=== PATIENT | female | born 1975 | race Hispanic/Latino ===

== ENCOUNTER → 2020-06-22 | Outpatient (CLI) | payer BC | END | disposition home or self-care (01) | LOC: SHCH 15:17 | PROVIDERS: ATTEND Internal Medicine Cardiovascular Disease | DX: R07.89 Other chest pain (principal) | CPT/HCPCS: 93306; 93356 ==

== ENCOUNTER 2020-12-03 11:03 | Emergency (ER) | payer BC ==
[2020-12-03] MEDS ORDERED: IBUPROFEN 600 MG TABLET ONE (12:05)
== END 2020-12-03 13:43 | disposition home or self-care (01) ==
LOC: EDH 11:03
DX: M79.604 Pain in right leg (principal); M79.605 Pain in left leg; Z91.041 Radiographic dye allergy status
CPT/HCPCS: 93970